=== PATIENT | female | born 1950 | race Caucasian/White ===

== ENCOUNTER 2022-09-08 09:22 | Day surgery (SDC) | payer MEDICARE, BC, SELFPAY ==
[2022-09-08 09:56] VITALS: BP 156/67; PULSE 73; RESP 16; TEMP 36.4; O2SAT 99
[2022-09-08] MEDS: Tropicam./Phenyleph. (1/2.5%) 5 ML BTL OS ×3 (10:02→10:24)
--- NOTE | 2022-09-08 10:04 | ANES.PREOP_ITS ---
General Info Date of Service Date Performed: 09/08/22 Height: 5 ft Weight: 73.1 kg Body Mass Index (BMI): 31.4 Surgical Procedure: Operation Date: 09/08/22 12:40 Proposed Procedure Side Surgeon p Cataract Extraction with IOL Implant Left Robin Bird MD Meds Allergies and Home Medications Allergies Allergy/AdvReac Type Severity Reaction Status Date / Time atorvastatin [From Lipitor] Allergy Severe Other (See Verified 09/08/22 09:50 Comment) Home Medication Medication Instructions Recorded amlodipine 5 mg tablet 5 mg PO DAILY 09/06/22 calcium carbonate 600 mg calcium 600 mg PO BID 09/06/22 (1,500 mg) tablet (Calcium) cholecalciferol (vitamin D3) 50 50 mcg PO DAILY 09/06/22 mcg (2,000 unit) tablet (Vitamin D3) levothyroxine 125 mcg tablet 125 mcg PO DAILY 09/06/22 losartan 100 mg tablet 100 mg PO DAILY 09/06/22 multivitamin 1 tab PO DAILY 09/06/22 omega-3 fatty acids 1 cap PO DAILY 09/06/22 rosuvastatin 5 mg tablet 5 mg PO DAILY 09/06/22 tumeric 100 mg-leigh 150 mg-olive cap PO 09/08/22 50 mg-oreg 150 mg-caprylate capsule Current Visit Medications: Current Medications Generic Name Dose Route Start Last Admin Trade Name Freq PRN Reason Stop Dose Admin Acetaminophen 1,000 mg 09/08/22 06:00 Acetaminophen 500 Mg Tab PO Q4H PRN PRN Miscellaneous Medication 0 ml 09/08/22 06:00 09/08/22 10:02 Tropicam./Phenyleph. (1/2.5%) 5 Ml Btl OS 1 drp DIRECTED [facility] Administration Miscellaneous Medication 0 ml 09/08/22 06:00 Prednisolone 1%, Moxifloxacin 0.5%, Nepafenac 0.1% 5ml Btl OS DIRECTED [facility] Tetracaine HCl 0 ml 09/08/22 06:00 Tetracaine 0.5% 4 Ml Btl OS DIRECTED [facility] Medical History Medical History Dyslipidemia Essential hypertension, benign HTN (hypertension) Hypothyroidism Lymphocytic colitis Surgical History Surgical History History of bilateral inguinal hernia repair History of eyelid surgery 2020 History of tonsillectomy and adenoidectomy Hx of appendectomy Hx of biopsy colon biopsy [place] teeth extracted Tobacco Smoking/Tobacco Use Status: Former Tobacco Use Alcohol Alcohol Intake: current Alcohol intake frequency: a few times a week Substance Use Substance use: Never Substance use type: does not use Vital Signs and Lab Results Vital Signs Most Recent Vital Signs in EMR: Most Recent Vital Signs Temp Pulse Resp BP Pulse Ox 36.4 C L 73 16 156/67 H 99 09/08/22 09:56 09/08/22 09:56 09/08/22 09:56 09/08/22 09:56 09/08/22 09:56 Lab Results Blood Type / Crossmatch: No Data to Display Complete Blood Count: No Data to Display Complete Metabolic Panel: No Data to Display Liver Function Panel: No Data to Display Coagulation Panel: No Data to Display Cardiac Panel: No Data to Display Arterial Blood Gas: No Data to Display Venous Blood Gas: No Data to Display Pancreas Panel: No Data to Display Thyroid Panel: No Data to Display Infectious Disease: No Data to Display Blood Cultures: No Data to Display Toxicology Panel: No Data to Display Anesthesia Assessment and Plan Anesthesia History Personal History: No History of Anesthesia Complications Family History: No Family History of Anesthesia Complications Exercise Tolerance Exercise Tolerance: Metabolic Equivalents>4 Pertinent Negatives Pertinent Negatives: No Symptoms of GERD Cardiac & Pulmonary Exam Cardiac Exam: Normal S1/S2 Heart Sounds Pulmonary Exam: Clear Bilateral Breath Sounds Implantable Cardiac Device Does patient have a Pacemaker or an ICD?: No Airway Exam Known Difficult Airway: No Mallampati Class: 3 Mouth Opening: Normal (> 3cm) Thyromental Distance: Greater than 3 cm Neck Range of Motion: Full ROM Neck Circumference: Normal Teeth Condition: Normal Dentition ASA Classification ASA Score: ASA 2 Emergency Case?: No NPO Status NPO Status: NPO Clears >2 hours, Solids >8 hours Anesthesia Plan Resuscitation Status: Full Code Anesthesia Technique: MAC Anesthesia Airway Planned: Natural Airway Monitors Used: Standard Monitors
[2022-09-08 10:22] VITALS: BMI 31.4
[2022-09-08] MEDS: Balanced Salt Soln.-PLUS 500 ML BAG (11:07)
[2022-09-08] MEDS: Tetracaine 0.5% 4 ML BTL OS (11:07)
[2022-09-08] MEDS: Lidocaine 1% Pres-Free 5 ML VIAL (11:08)
[2022-09-08] MEDS: Lidocaine 2% Jelly 6 ML SYR (11:08)
[2022-09-08] MEDS: Duovisc Viscoelastic System EACH 1 EACH (11:08)
[2022-09-08] MEDS: Povidone-Iodine Ophth 30 ML BTL (11:09)
[2022-09-08 11:30] VITALS: BP 138/92; PULSE 68; RESP 18; TEMP 36.6; O2SAT 100
--- NOTE | 2022-09-08 11:36 | PDOC.DSDIS_ITS ---
Date of service: 09/08/22 Time of Service: 11:36 Discharge Plan Disposition Patient Disposition: Home Discharge Details Attending Provider: Robin Bird Primary Care Provider: Angelina Grubbs Home Meds and New Rx's Prescriptions: No Action amlodipine 5 mg Tablet 5 mg PO DAILY rosuvastatin 5 mg Tablet 5 mg PO DAILY levothyroxine 125 mcg Tablet 125 mcg PO DAILY losartan 100 mg Tablet 100 mg PO DAILY [place] 3 Capsule 1 cap PO DAILY multivitamin Tablet 1 tab PO DAILY calcium carbonate [Calcium 600] 600 mg calcium (1,500 mg) Tablet 600 mg PO BID cholecalciferol (vitamin D3) [Vitamin D3] 50 mcg (2,000 unit) Tablet 50 mcg PO DAILY eoinqjr-sfcr-sruzh-oreg-capryl 100 mg-150 mg- 50 mg-150 mg Capsule PO Discharge Instructions Stand Alone Forms: Post-op Topical Cataract, Edgar Patel (DSU) Discharge Orders Discharge Orders: Discharge Order (Routine); Ordered 09/08/22 Ordered By: Robin Bird DS: Diagnosis Discharge Diagnosis (1) Cortical cataract of left eye: Status: Resolved (2) Nuclear sclerotic cataract of left eye: Status: Resolved
--- NOTE | 2022-09-08 11:37 | W.PM.OP ---
Date of service: 09/08/22 Time of Service: 11:37 Operative Note Operative Note DATE OF PROCEDURE: 09/08/22 PRE-OP DIAGNOSIS: Nuclear/cortical cataract, left eye POST-OP DIAGNOSIS: same PROCEDURE: Cataract extraction using phacoemulsification with intraocular lens implant, left eye SURGEON: Robin Bird ANESTHESIA TYPE: Local By Surgeon and MAC Refer to Anesthesia Record PATHOLOGY: none sent COMPLICATIONS: None Patient was transported to: same day Patient's condition: stable Implants: Ken Clareon [id number] Indications: Progressive decreased vision due to cataract, left eye Procedure Description: CATARACT SURGERY OPERATIVE REPORT PREOPERATIVE DIAGNOSIS: Nuclear/cortical cataract, left eye POSTOPERATIVE DIAGNOSIS: Same OPERATION: Cataract extraction using phacoemulsification with posterior chamber intraocular lens implant, left eye. IOL: IOL [employer] Leak Tester/Model: Ken Clareon [id number] IOL Power: + 27.0 diopters IOL Serial Number: [id number] Optic Diameter: 6.0mm Haptic/Overall Diameter: 13.0mm PHACO INFO: Kenappssavvyurion Vision System with OZil and Active Fluidics Cumulative Dispersed Energy (CDE): 8.48 seconds SURGEON: Robin Bird MD, JORGE ANESTHESIA: Monitored Anesthesia Care (MAC), with local sub-tenon's anesthetic infiltration COMPLICATIONS: None SPECIMENS: None INDICATIONS FOR PROCEDURE: The patient is a 72-year-old lady with history of diminished visual acuity in her left eye secondary to the development of significant nuclear/cortical cataract. She currently wears contact lens monovision, left eye near 4 over the past 30 years. She desires to keep her monovision after cataract surgery postoperative refractive target in the left eye is -2.0 to -2.5 diopters. PROCEDURE: The correct surgical eye was identified and marked as the left eye and the pupil was dilated in the preoperative area using mydriatics and cycloplegics. The dilated pupil size was 7.0 mm. Oral sedation was administered in the form of an Imprimis MKO Melt (midazolam 3mg/ketamine 25mg/ondansetron 2mg). The patient elected to proceed without oral sedation. The patient was brought to the operating room where cardiopulmonary monitoring was instituted and surgical time-out was performed, confirming the correct operative eye and IOL power. Topical anesthesia was administered and ophthalmic povidone-iodine 5% was instilled into the conjunctival fornices. Lidocaine gel was applied to the cornea and the gabriel-ocular area was prepped with Betadine 10% solution and draped in the usual sterile fashion for intraocular surgery, including an aperture drape. A Tegaderm transparent film dressing was cut in half and used to cover the lashes and lid margins. Care was taken to sequester the lashes and lid margins under the Tegaderm dressing. A lid speculum was placed between the lids of the operative eye and the Ken LuxOR Revalia operating microscope was maneuvered into position. Roly scissors were then used to make a conjunctival buttonhole approximately 6mm posterior to the limbus in the inferonasal quadrant. Blunt dissection was carried out to expose bare sclera, and a blunt-tipped sub-tenon?s anesthesia cannula was introduced and passed posteriorly along the globe where non-preserved plain lidocaine was injected into posterior sub-Tenon?s space. A sideport knife was used to make a paracentesis port superior/superiortemporally. Intraocular phenylephrine/lidocaine was injected into the anterior chamber. The anterior chamber was then filled with viscoelastic. A keratome knife was used construct a two-plane near-clear corneal tunnel extending 2.0mm into clear cornea in the temporal position. . A flap was raised on the anterior capsule and capsulorhexis forceps were used to complete a continuous curvilinear capsulorhexis of 5.0 mm. Balanced salt solution was then used to perform cortical cleaving hydrodissection and nuclear hydrodelineation until the lens could be freely rotated within the capsular bag. The lens nucleus was then disassembled and removed within the capsular bag and iris plane using phacoemulsification. Residual cortical material was removed using the 45-degree angled silicone I/A tip with 0.3mm port. The posterior capsule was carefully polished to remove as much residual lens epithelial cells as safely possible. The capsular bag was then inflated and the anterior chamber deepened with viscoelastic. The lens implant described above was inserted into the capsular bag using the Ken Autonome Injector. A Kuglen hook was used to dial the IOL into position. Residual viscoelastic was then removed first from posterior to the IOL, then from the anterior chamber using the I/A handpiece. The lens implant was noted to center nicely within the capsular bag. The incisions were stromally hydrated, and the anterior chamber was reformed using BSS. Then 0.5cc of moxifloxacin 1.0mg/ml were injected into the capsular bag and anterior chamber. The incisions were checked with a Weck spear and found to be secure. Several drops of ophthalmic povidone-iodine 5% were then applied to the eye followed by two drops of Imprimis combination prednisolone/moxifloxacin/nepafenac solution. The drapes were removed and a clear plastic protective eye shield was placed over the eye. The patient was then returned to Same Day Surgery in stable condition.
--- NOTE | 2022-09-08 11:41 | W.ANESPOSTOP ---
Postoperative Evaluation Date, Time and Location Date Performed: 09/08/22 Time Performed: 11:41 Patient Location: Day Surgery Unit Vital Signs Most Recent Imported Vital Signs: Most Recent Vital Signs Temp Pulse Resp BP Pulse Ox 36.6 C 68 18 138/92 H 100 09/08/22 11:30 09/08/22 11:30 09/08/22 11:30 09/08/22 11:30 09/08/22 11:30 Pain Score Most Recent Pain Score: Most Recent Pain Score Pain Level 0 09/08/22 11:30 Assessment Mental Status: Awake (Alert & Oriented to Patient Baseline) Airway and Respiratory Function: Patent airway with normal (patient baseline) respiratory exam Cardiovascular Function: Hemodynamically Stable Hydration Status: Adequately Hydrated Nausea & Vomiting: No Nausea or Vomiting Pain: Pt. Denies Any Pain Peripheral Nerve Block: Patient did not receive a nerve block
[2022-09-08 12:00] VITALS: BP 139/62; PULSE 66; RESP 18; TEMP 36.6; O2SAT 98
== END 2022-09-08 12:04 | disposition home or self-care (01) ==
PROVIDERS: PCP Physician Assistant Medical; Visit Provider Ophthalmology
PROC: (CPT 66984; principal; 2022-09-08 12:30)
DX: H25.12 Age-related nuclear cataract, left eye (principal)
CPT/HCPCS: 66984; V2632

== ENCOUNTER 2022-09-15 07:48 | Day surgery (SDC) | payer MEDICARE, BC, SELFPAY ==
--- NOTE | 2022-09-15 08:25 | ANES.PREOP_ITS ---
General Info Date of Service Date Performed: 09/15/22 Height: 5 ft Weight: 73.1 kg Body Mass Index (BMI): 31.4 Surgical Procedure: Operation Date: 09/15/22 09:55 Proposed Procedure Side Surgeon p Cataract Extraction with IOL Implant Right Robin Bird MD Meds Allergies and Home Medications Allergies Allergy/AdvReac Type Severity Reaction Status Date / Time atorvastatin [From Lipitor] Allergy Severe Other (See Verified 09/15/22 08:28 Comment) Home Medication Medication Instructions Recorded amlodipine 5 mg tablet 5 mg PO DAILY 09/06/22 calcium carbonate 600 mg calcium 600 mg PO BID 09/06/22 (1,500 mg) tablet (Calcium) cholecalciferol (vitamin D3) 50 50 mcg PO DAILY 09/06/22 mcg (2,000 unit) tablet (Vitamin D3) levothyroxine 125 mcg tablet 125 mcg PO DAILY 09/06/22 losartan 100 mg tablet 100 mg PO DAILY 09/06/22 multivitamin 1 tab PO DAILY 09/06/22 omega-3 fatty acids 1 cap PO DAILY 09/06/22 rosuvastatin 5 mg tablet 5 mg PO DAILY 09/06/22 tumeric 100 mg-leigh 150 mg-olive 1 cap PO DAILY 09/08/22 50 mg-oreg 150 mg-caprylate capsule Current Visit Medications: Current Medications Generic Name Dose Route Start Last Admin Trade Name Freq PRN Reason Stop Dose Admin Acetaminophen 1,000 mg 09/15/22 06:00 Acetaminophen 500 Mg Tab PO Q4H PRN PRN Miscellaneous Medication 0 ml 09/15/22 06:00 Tropicam./Phenyleph. (1/2.5%) 5 Ml Btl OD DIRECTED [facility] Miscellaneous Medication 0 ml 09/15/22 06:00 Prednisolone 1%, Moxifloxacin 0.5%, Nepafenac 0.1% 5ml Btl OD DIRECTED [facility] Tetracaine HCl 0 ml 09/15/22 06:00 Tetracaine 0.5% 4 Ml Btl OD DIRECTED [facility] PFS Active Problems Active Problems: Problem Status Onset Code Nuclear sclerotic cataract of left eye H25.12 Cortical cataract of left eye H26.9 Medical History Medical History Dyslipidemia Essential hypertension, benign HTN (hypertension) Hypothyroidism Lymphocytic colitis Surgical History Surgical History History of bilateral inguinal hernia repair History of eyelid surgery 2020 History of tonsillectomy and adenoidectomy Hx of appendectomy Hx of biopsy colon biopsy [place] teeth extracted Tobacco Smoking/Tobacco Use Status: Former Tobacco Use Alcohol Alcohol Intake: current Alcohol intake frequency: a few times a week Substance Use Substance use: Never Substance use type: does not use Vital Signs and Lab Results Lab Results Blood Type / Crossmatch: No Data to Display Complete Blood Count: No Data to Display Complete Metabolic Panel: No Data to Display Liver Function Panel: No Data to Display Coagulation Panel: No Data to Display Cardiac Panel: No Data to Display Arterial Blood Gas: No Data to Display Venous Blood Gas: No Data to Display Pancreas Panel: No Data to Display Thyroid Panel: No Data to Display Infectious Disease: No Data to Display Blood Cultures: No Data to Display Toxicology Panel: No Data to Display Anesthesia Assessment and Plan Anesthesia History Personal History: No History of Anesthesia Complications Family History: No Family History of Anesthesia Complications Exercise Tolerance Exercise Tolerance: Metabolic Equivalents>4 Pertinent Negatives Pertinent Negatives: No Symptoms of GERD Cardiac & Pulmonary Exam Cardiac Exam: Normal S1/S2 Heart Sounds Pulmonary Exam: Clear Bilateral Breath Sounds Implantable Cardiac Device Does patient have a Pacemaker or an ICD?: No Airway Exam Known Difficult Airway: No Mallampati Class: 3 Mouth Opening: Normal (> 3cm) Thyromental Distance: Greater than 3 cm Neck Range of Motion: Full ROM Neck Circumference: Normal Teeth Condition: Normal Dentition ASA Classification ASA Score: ASA 2 Emergency Case?: No NPO Status NPO Status: NPO Clears >2 hours, Solids >8 hours Anesthesia Plan Resuscitation Status: Full Code Anesthesia Technique: MAC Anesthesia Airway Planned: Natural Airway Monitors Used: Standard Monitors Preoperative Comments:: Wants an MKO like her last visit.
[2022-09-15 08:31] VITALS: BP 163/58; PULSE 67; RESP 18; TEMP 36.6; O2SAT 98
[2022-09-15] MEDS: Tropicam./Phenyleph. (1/2.5%) 5 ML BTL OD ×3 (08:42→08:55)
[2022-09-15 09:11] VITALS: BMI 31.4
[2022-09-15] MEDS: Balanced Salt Soln.-PLUS 500 ML BAG (10:04)
[2022-09-15] MEDS: Duovisc Viscoelastic System EACH 1 EACH (10:05)
[2022-09-15] MEDS: Lidocaine 2% Jelly 6 ML SYR (10:05)
[2022-09-15] MEDS: Povidone-Iodine Ophth 30 ML BTL (10:06)
[2022-09-15] MEDS: Tetracaine 0.5% 4 ML BTL OD (10:07)
[2022-09-15 10:25] VITALS: BP 152/70; PULSE 69; RESP 16; TEMP 36.5; O2SAT 94
--- NOTE | 2022-09-15 10:28 | PDOC.DSDIS_ITS ---
Date of service: 09/15/22 Time of Service: 10:28 Discharge Plan Disposition Patient Disposition: Home Discharge Details Attending Provider: Robin Bird Primary Care Provider: Angelina Grubbs Home Meds and New Rx's Prescriptions: No Action amlodipine 5 mg Tablet 5 mg PO DAILY rosuvastatin 5 mg Tablet 5 mg PO DAILY levothyroxine 125 mcg Tablet 125 mcg PO DAILY losartan 100 mg Tablet 100 mg PO DAILY [place] 3 Capsule 1 cap PO DAILY multivitamin Tablet 1 tab PO DAILY calcium carbonate [Calcium 600] 600 mg calcium (1,500 mg) Tablet 600 mg PO BID cholecalciferol (vitamin D3) [Vitamin D3] 50 mcg (2,000 unit) Tablet 50 mcg PO DAILY wjkbbea-kbrs-qxtxh-oreg-capryl 100 mg-150 mg- 50 mg-150 mg Capsule 1 cap PO DAILY Discharge Instructions Stand Alone Forms: Post-op Topical Cataract, Edgar Patel (DSU) Discharge Orders Discharge Orders: Discharge Order (Routine); Ordered 09/15/22 Ordered By: Robin Bird DS: Diagnosis Discharge Diagnosis (1) Cortical cataract of right eye: Status: Resolved (2) Nuclear sclerotic cataract of right eye: Status: Resolved
--- NOTE | 2022-09-15 10:29 | ROE_ITS ---
Date of service: 09/15/22 Time of Service: 10:29 Operative Note Operative Note DATE OF PROCEDURE: 09/15/22 PRE-OP DIAGNOSIS: Nuclear/cortical cataract, right eye POST-OP DIAGNOSIS: same PROCEDURE: Cataract extraction using phacoemulsification with intraocular lens implant, right eye SURGEON: Robin Bird ANESTHESIA TYPE: Local By Surgeon and MAC Refer to Anesthesia Record ESTIMATED BLOOD LOSS: 0 PATHOLOGY: none sent COMPLICATIONS: None Patient was transported to: same day Patient's condition: stable Implants: Isaac & Isaac Tecnis Eyhance [id number] Indications: Progressive visual loss due to cataract, right eye Procedure Description: CATARACT SURGERY OPERATIVE REPORT PREOPERATIVE DIAGNOSIS: 1. Nuclear/cortical cataract, right eye POSTOPERATIVE DIAGNOSIS: Same OPERATION: 1. Cataract extraction using phacoemulsification with posterior chamber intraocular lens implant, right eye. IOL: IOL [employer] Service Aide/Model: Isaac & Isaac Tecnis Eyhance [id number] IOL Power: + 24.5 diopters IOL Serial Number: [id number] Optic Diameter: 6.0mm Haptic/Overall Diameter: 13.0mm PHACO INFO: KenMaxtaon Vision System with OZil and Active Fluidics Cumulative Dispersed Energy (CDE): 7.01 seconds SURGEON: Robin Bird MD, JORGE ANESTHESIA: Monitored Anesthesia Care (MAC), with local sub-tenon's anesthetic infiltration COMPLICATIONS: None SPECIMENS: None INDICATIONS FOR PROCEDURE: The patient is a 72-year-old lady with history of symptomatic bilateral nuclear/cortical cataract. She has a long history of hyperopia and contact lens monovision. She has her left eye corrected for near. She developed symptomatic bilateral cataracts and has recently undergone cataract surgery in the left eye, focused for near. She now presents for cataract surgery in the right eye, refractive target is [place] for distance. PROCEDURE: The correct surgical eye was identified and marked as the right eye and the pupil was dilated in the preoperative area using mydriatics and cycloplegics. The dilated pupil size was 7.0 mm. Oral sedation was administered in the form of an Imprimis MKO Melt (midazolam 3mg/ketamine 25mg/ondansetron 2mg). The patient was brought to the operating room where cardiopulmonary monitoring was instituted and surgical time-out was performed, confirming the correct operative eye and IOL power. Topical anesthesia was administered and ophthalmic povidone-iodine 5% was instilled into the conjunctival fornices. Lidocaine gel was applied to the cornea and the gabriel-ocular area was prepped with Betadine 10% solution and draped in the usual sterile fashion for intraocular surgery, including an aperture drape. A Tegaderm transparent film dressing was cut in half and used to cover the lashes and lid margins. Care was taken to sequester the lashes and lid margins under the Tegaderm dressing. A lid speculum was placed between the lids of the operative eye and the Ken LuxOR Revalia operating microscope was maneuvered into position. Roly scissors were then used to make a conjunctival buttonhole approximately 6mm posterior to the limbus in the inferonasal quadrant. Blunt dissection was carried out to expose bare sclera, and a blunt-tipped sub-tenon?s anesthesia cannula was introduced and passed posteriorly along the globe where non- preserved plain lidocaine was injected into posterior sub-Tenon?s space. A sideport knife was used to make a paracentesis port inferotemporally. Intraocular phenylephrine/lidocaine was injected into the anterior chamber. The anterior chamber was filled with viscoelastic. A keratome knife was used to construct a 2-plane near-clear corneal tunnel extending 2.0mm into clear cornea superiortemporally. A flap was raised on the anterior capsule and capsulorhexis forceps were used to complete a continuous curvilinear capsulorhexis of 5.5 mm. Balanced salt solution was then used to perform cortical cleaving hydrodissection and nuclear hydrodelineation until the lens could be freely rotated within the capsular bag. The lens nucleus was then disassembled and removed within the capsular bag and iris plane using phacoemulsification. Residual cortical material was removed using the I/A handpiece. The posterior capsule was carefully polished to remove as much residual lens epithelial cells as safely possible. The capsular bag was then inflated and the anterior chamber deepened with viscoelastic. The lens implant described above was inserted into the capsular bag using the Isaac and Oralia Simplicity pre-loaded injector. A Kuglen hook was used to dial the IOL into position. Residual viscoelastic was then removed first from posterior to the IOL, then from the anterior chamber using the I/A handpiece. The lens implant was noted to center nicely within the capsular bag. The incisions were stromally hydrated, and the anterior chamber was reformed using BSS. Then 0.5cc of moxifloxacin 1.0mg/ml were injected into the capsular bag and anterior chamber. The incisions were checked with a Weck spear and found to be secure. Several drops of ophthalmic povidone-iodine 5% were then applied to the eye followed by two drops of Imprimis combination prednisolone/moxifloxacin/nepafenac solution. The drapes were removed and a clear plastic protective eye shield was placed over the eye. The patient was then returned to Same Day Surgery in stable condition.
[2022-09-15 10:48] VITALS: BP 144/61; PULSE 62; RESP 16; TEMP 37; O2SAT 98
--- NOTE | 2022-09-15 10:59 | W.ANESPOSTOP ---
Postoperative Evaluation Date, Time and Location Date Performed: 09/15/22 Time Performed: 10:48 Patient Location: Day Surgery Unit Vital Signs Most Recent Imported Vital Signs: Most Recent Vital Signs Temp Pulse Resp BP Pulse Ox 37 C 62 16 144/61 H 98 09/15/22 10:48 09/15/22 10:48 09/15/22 10:48 09/15/22 10:48 09/15/22 10:48 Pain Score Most Recent Pain Score: Most Recent Pain Score Pain Level 0 09/15/22 10:48 Assessment Mental Status: Awake (Alert & Oriented to Patient Baseline) Airway and Respiratory Function: Patent airway with normal (patient baseline) respiratory exam Cardiovascular Function: Hemodynamically Stable Hydration Status: Adequately Hydrated Nausea & Vomiting: No Nausea or Vomiting Pain: Pt. Denies Any Pain Peripheral Nerve Block: Other (Local by Dr. Bird)
== END 2022-09-15 10:51 | disposition home or self-care (01) ==
PROVIDERS: PCP Physician Assistant Medical; Visit Provider Ophthalmology
PROC: (CPT 66984; principal; 2022-09-15 09:45)
DX: H25.11 Age-related nuclear cataract, right eye (principal)
CPT/HCPCS: 66984; V2632